=== PATIENT | male | born 1990 | race Caucasian/White ===

== ENCOUNTER 2019-11-24 23:06 | Emergency (ER) | payer MEDICAID, OTHER ==
[~2019-11-24] VITALS: Ht 177.8 cm; Wt 80.7 kg
--- NOTE | 2019-11-25 | NUR ---
PT HIRAM C/O R FACIAL PAIN X30 DAYS. PT STATES "I FEEL LIKE THE ROOM IS VIBRATING". PT STATES HE'S HAD MULTIPLE ER VISITS WITHIN THE PAST MONTH. PT AAOX4. RESPIRATIONS EVEN AND UNLABORED. SKIN WARM AND INTACT. AMBULATORY WITH STEADY GAIT. NO ACUTE DISTRESS NOTED AT THIS TIME. WILL CONTINUE TO MONITOR
[2019-11-25] MEDS ORDERED: IV NS 0.9% 1,000 ML BAG IV ONE (00:30)
[2019-11-25] MEDS ORDERED: KETOROLAC TROMETHAMINE INJ 30 MG/ML VIAL IV ONE (00:30)
[2019-11-25] MEDS ORDERED: methylPREDNISolone SOD SUCC 125 MG/2ML VIAL IV ONE (00:30)
[2019-11-25] MEDS ORDERED: METOCLOPRAMIDE HCL 10 MG/2 ML VIAL IV ONE (00:30)
[2019-11-25] MEDS ORDERED: SUMATRIPTAN SUCCINATE 25 MG TABLET PO ONE (00:30)
[2019-11-25] MEDS ORDERED: METOCLOPRAMIDE HCL 10 MG/2 ML VIAL ONE (00:32)
[2019-11-25] MEDS ORDERED: KETOROLAC TROMETHAMINE 15 MG/ML VIAL ONE (00:32)
[2019-11-25] MEDS ORDERED: methylPREDNISolone SOD SUCC 125 MG/2ML VIAL ONE (00:32)
[2019-11-25] MEDS ORDERED: SUMATRIPTAN SUCCINATE 25 MG TABLET ONE (00:32)
--- NOTE | 2019-11-25 04:05 | NUR ---
IV removed. Catheter intact and site benign. Pressure and 4x4 applied to site. No bleeding noted.Patient discharged to home in stable condition. Written and verbal after care instructions given. Patient verbalizes understanding of instruction.
[2019-11-25 04:14] VITALS: BP 134/84
== END 2019-11-25 04:15 | disposition home or self-care (01) ==
LOC: ER 23:09
DX: G43.909 Migraine, unspecified, not intractable, without status migrainosus (principal)
CPT/HCPCS: 70450; 96374; 96375; 99284; J1885; J2765; J2930; J7030

== ENCOUNTER 2019-12-11 18:24 | Emergency (ER) | payer OTHER ==
[~2019-12-11] VITALS: Ht 180.3 cm; Wt 98.4 kg
[2019-12-11 18:34] VITALS: BP 129/72
--- NOTE | 2019-12-11 18:35 | NUR ---
PT AAOX4. AMBULATORY C/O Headache/ear pain 08/30 started on R side of ear 1mo ago now worse. PT States he was seen by primary. vss. no acute distress noted. Awaiting MD for eval. Will continue to monitor.
== END 2019-12-11 19:02 | disposition home or self-care (01) ==
LOC: ER 18:24
DX: G43.909 Migraine, unspecified, not intractable, without status migrainosus (principal)

== ENCOUNTER 2019-12-30 16:09 | Emergency (ER) | payer OTHER ==
[~2019-12-30] VITALS: Ht 180.3 cm; Wt 97.5 kg
--- NOTE | 2019-12-30 16:21 | NUR ---
came in for headache, neck pain x 2 days,10/10 ps on ATB PO for tooth abscess noted rash on both leg tuesday, to er bed 10, hooked to monitor, changed to hosp gown, warm blanket provided, awaiting md alicia.
--- NOTE | 2019-12-30 16:31 | NUR ---
linker up degrasse at bedside
[2019-12-30 16:50] LABS: BASOPHILS % (AUTO) 0.8 % (0.0-2.0); HEMATOCRIT 43 % (39-51); HEMOGLOBIN 14.7 g/dL (13.5-17.5); LYMPHOCYTES # (AUTO) 1.8 /CMM (0.8-4.8); LYMPHOCYTES % (AUTO) 29.6 % (20.0-44.0); MEAN CORPUSCULAR HGB CONC 35 g/dl (31.0-36.0); MEAN CORPUSCULAR VOLUME 93 fL (80-96); MONOCYTES # (AUTO) 0.6 /CMM (0.1-1.30); MONOCYTES % (AUTO) 9.9 % (2.0-12.0); NEUTROPHILS # (AUTO) 3.4 /CMM (1.8-8.9); NEUTROPHILS % (AUTO) 56.7 % (43.0-81.0); PLATELET COUNT (AUTO) 230 /CMM (150-450); RED BLOOD CELL COUNT(AUTO) 4.59 MIL/uL (4.5-6.0); WHITE BLOOD COUNT (AUTO) 5.9 K/uL (4.3-11.0)
[2019-12-30 17:05] LABS: ALANINE AMINOTRANSFERASE 39 U/L (12-78); ALBUMIN 3.9 g/dL (3.4-5.0); ALKALINE PHOSPHATASE 39 U/L (46-116); ASPARTATE AMINOTRANSFERASE 24 U/L (15-37); BILIRUBIN,TOTAL 0.4 mg/dL (0.2-1.0); CALCIUM, SERUM 8.8 mg/dL (8.5-10.1); CARBON DIOXIDE 30 mmol/L (21-32); CHLORIDE 105 mmol/L (98-107); CREATININE 0.9 mg/dL (0.6-1.3); GLUCOSE 88 mg/dL (74-106); POTASSIUM 4.1 mmol/L (3.5-5.1); SODIUM SERUM 142 mmol/L (136-145); TOTAL PROTEIN, SERUM 6.8 g/dL (6.4-8.2); UREA NITROGEN, BLOOD 12 mg/dL (7-18)
[2019-12-30 17:16] LABS: C-REACTIVE PROTEIN < 0.2 mg/dL (0.0-0.9)
--- NOTE | 2019-12-30 17:59 | NUR ---
Patient discharged to home in stable condition. Written and verbal after care instructions given. Patient verbalizes understanding of instruction.
[2019-12-30 18:00] VITALS: BP 129/84
== END 2019-12-30 18:01 | disposition home or self-care (01) ==
LOC: ER 16:14
DX: H69.93 Unspecified Eustachian tube disorder, bilateral (principal); G43.909 Migraine, unspecified, not intractable, without status migrainosus
CPT/HCPCS: 36415; 70220-TC; 80053-TC; 85025-TC; 85652-TC; 86140-TC

== ENCOUNTER 2020-01-12 19:47 | Emergency (ER) | payer OTHER ==
[~2020-01-12] VITALS: Ht 180.3 cm; Wt 99.8 kg
[2020-01-12 20:14] VITALS: BP 145/82
--- NOTE | 2020-01-12 21:23 | NUR ---
CALLED PT IN WAITING ROOM. NO RESPONSE.
== END 2020-01-12 21:50 | disposition left against medical advice (07) ==
LOC: ER 19:51
DX: Z53.21 Procedure and treatment not carried out due to patient leaving prior to being seen by health care provider (principal); R20.0 Anesthesia of skin; G43.909 Migraine, unspecified, not intractable, without status migrainosus

== ENCOUNTER 2020-02-28 21:46 | Emergency (ER) | payer BC, OTHER ==
[~2020-02-28] VITALS: Ht 180.3 cm; Wt 102.1 kg
--- NOTE | 2020-02-28 21:48 | NUR ---
BIB SELF C/O SOB FOR 2 DAYS "ZENAIDA BEEN TAKING ALBUTEROL DOESNT WORK" 02 SAT: 98% AT RA. REPORTS CHEST TIGHTNESS/HEAVINESS. BECOMING PROGRESSIVELY WORSE. NO ACUTE DISTRESS NOTED. READY FOR EVAL.
--- NOTE | 2020-02-28 22:58 | NUR ---
CALLED RT FOR BREATHING TX
[2020-02-28] MEDS ORDERED: IPRATROPIUM NEB FS 0.5 MG/2.5 ML AMPUL.NEB ONE (23:06)
[2020-02-28] MEDS ORDERED: ALBUTEROL FS 2.5 MG/3 ML VIAL.NEB ONE (23:06)
--- NOTE | 2020-02-28 23:07 | NUR ---
RT AT BEDSIDE
[2020-02-28] MEDS: ALBUTEROL FS 2.5 MG/3 ML VIAL.NEB NEB ONE (23:22)
[2020-02-28] MEDS: IPRATROPIUM NEB FS 0.5 MG/2.5 ML AMPUL.NEB NEB ONE (23:22)
--- NOTE | 2020-02-28 23:23 | NUR ---
RT pt came to er c/o sob. upon arriving to pt's room, pt is resting comfortably in bed on room air. per pt, pt has hx of asthma. upon assessment, pt has no distress or sob. RR 18 HR 66 SPO2 100%. lung sounds clear. pt states some chest tightness when breathing. tx given as ordered.
--- NOTE | 2020-02-28 23:27 | NUR ---
Patient discharged to home in stable condition. Written and verbal after care instructions given. Patient verbalizes understanding of instruction. PT MAY GO ONCE BREATHING TX IS COMPLETED.
[2020-02-28 23:28] VITALS: BP 127/76
== END 2020-02-28 23:50 | disposition home or self-care (01) ==
LOC: ER 21:47
DX: J45.909 Unspecified asthma, uncomplicated (principal); G43.909 Migraine, unspecified, not intractable, without status migrainosus
CPT/HCPCS: 71045-TC